=== PATIENT | male | born 1990 | race Caucasian/White ===

== ENCOUNTER 2020-01-20 10:45 | Emergency (ER) | payer MEDICAID, SELFPAY ==
[2020-01-20 10:53] VITALS: BP 109/82; PULSE 110; RESP 17; TEMP 37.2; O2SAT 98; BMI 20.9
--- NOTE | 2020-01-20 10:57 | ED_ITS ---
HPI - General Adult General Chief complaint: General Medical Stated complaint: covid swab Time Seen by Provider: 01/20/20 10:55 Source: patient Mode of arrival: ambulatory Limitations: no limitations History of Present Illness HPI narrative: + COVID exposure wants to be tested complaint: wants COVID swab, urine benavidez Onset (ago): day(s) (yesterday) Severity: mild Quality: burning Pain Consistency: intermittent Relieving factors: none Exacerbating factors: other (urination) Associated symptoms: other (feels his body is hot) Related Data Allergies Allergy/AdvReac Type Severity Reaction Status Date / Time acetaminophen [From TYLENOL] Allergy Unknown DIZZINESS, Verified 01/20/20 10:57 FELT REALLY BAD ampicillin [AMPICILLIN] Allergy Unknown HIVES, Verified 01/20/20 10:57 FEELS LIKE ORGANS SWOLLEN, swelling, swelling aspirin [ASPIRIN] Allergy Unknown DIZZINESS, Verified 01/20/20 10:57 FELT REALLY BAD, swelling, swelling fluphenazine [FLUPHENAZINE] Allergy Unknown WORSENED Verified 01/20/20 10:57 ANXIETY, anxiety haloperidol [Haldol] Allergy Unknown tachycardia Verified 01/20/20 10:57 mirtazapine Allergy Unknown sleepiness Verified 01/20/20 10:57 sertraline [SERTRALINE] Allergy Unknown SLEEPY, Verified 01/20/20 10:57 sleepiness Fluphenazine HCl Allergy Unknown Unknown Uncoded 01/20/20 10:57 Review of Systems Review of Systems: Constitutional : No Weight loss, No Fever, No Chills, No Fatigue, No Malaise ENT/Mouth : No sore throat, No Rhinorrhea Cardiovascular : No Chest Pain, No SOB Respiratory : No Cough, No Sputum, No Wheezing Gastrointestinal : No Nausea, No Vomiting, No Diarrhea, No Constipation, No abdominal Pain, No Hematochezia, No Melena Genitourinary : pos Dysuria, No Urinary Frequency, No Hematuria, Musculoskeletal : No joint pain, No Myalgias, No Joint Swelling Skin : No Skin Lesions, No rash Neuro : No Weakness, No Numbness, No Dizziness, No Headache Psych : No Anxiety/Panic, No Depression [facility] Past Medical History Attestation statement: The following information was validated with the patient. Medical History Asthma Social History Social History (Updated 01/20/20 @ 10:59 by Bernie Munoz DO) Smoking Status: Never smoker Use of substances other than those prescribed or required for medical reasons: No Advance Directives: No Advance Directives Information Provided: Yes Physical Exam Vital Signs: Vital Signs: Last Vital Signs Temp 99.0 F 01/20/20 10:53 Pulse 110 H 01/20/20 10:53 Resp 17 01/20/20 10:53 BP 109/82 01/20/20 10:53 Pulse Ox 98 01/20/20 10:53 Body Mass Index 20.9 Appearance: Alert. Oriented X3. No acute distress. Eyes: Pupils equal, round and reactive to light. ENT: Pharynx normal. Neck: Normal inspection. Neck supple. CVS: Normal heart rate and rhythm. Pulses normal. Respiratory: No respiratory distress. Breath sounds normal. Abdomen: Soft and nontender. Skin: Skin warm and dry. Normal skin color. Normal skin turgor. Extremities: No lower extremity edema. No calf ttp Neuro: Oriented X 3. No motor deficit. No sensory deficit. Medical Decision Making MDM Narrative Medical decision making narrative: asymptomatic COVID swab, clear lungs no hypoxia, also c/o burning of urination - no STI concerns, UA and GC ordered Discharge Plan Discharge Clinical Impression: Viral syndrome, Dysuria Patient Disposition: Home, Self-Care Instructions: COVID-19 (Coronavirus Disease 2019) (ED) Additional Instructions: return to ED for any worsening symptoms or concerns you were tested for COVID we will call you with results in 2 to 4 days, wear a mask, socially distance you were tested for gonorrhea and chlamydia too - if positive we will call you Referrals: [facility] [Primary Care Provider] - 2 days (if not better) Print Language: Sudanese
[2020-01-20 12:25] LABS: Glucose Urine UA NEG (NEG); Leukocyte Esterase Urine NEG (NEG); Nitrite Urine NEG (NEG); Specific Gravity - Urine >= 1.030 (1.005-1.025); Urine Blood TRACE (NEG); Urine Ketones >=80 MG/DL (NEG); Urine Protein NEG (NEG-TRACE)
[2020-01-20 12:26] LABS: Appearance Urine HAZY; Color Urine YELLOW
[2020-01-20 12:33] LABS: UACC CULT YES; WBC Urine 30-49 /HPF (0-4)
[2020-01-20 12:34] LABS: Squamous Epithelial Cell Urine 1+ /LPF
[2020-01-20 12:35] LABS: Mucus Urine 4+ /LPF
[2020-01-20 15:12] LABS: CT PCR NOT DETECTED (Not Detect.); NG PCR NOT DETECTED (Not Detect.)
== END 2020-01-20 12:37 | disposition home or self-care (01) ==
PROVIDERS: Emergency Provider Emergency Medicine
DX: B34.9 Viral infection, unspecified (principal); R30.0 Dysuria; Z20.828 Contact with and (suspected) exposure to other viral communicable diseases; Z20.2 Contact with and (suspected) exposure to infections with a predominantly sexual mode of transmission
CPT/HCPCS: 81001; 87086; 87088; 87186; 87491; 87591; 99283; U0003

== ENCOUNTER 2020-02-07 13:23 | Outpatient (REF) | payer MEDICAID, SELFPAY | END 2020-02-07 13:24 | disposition home or self-care (01) | LOC: HO.LAB 13:23 | PROVIDERS: Visit Provider Internal Medicine | DX: Z20.828 Contact with and (suspected) exposure to other viral communicable diseases (principal) | CPT/HCPCS: C9803; U0003 ==

== ENCOUNTER 2020-03-21 15:41 | Outpatient (REF) | payer MEDICAID, SELFPAY | END 2020-03-21 15:42 | disposition home or self-care (01) | LOC: HO.LAB 15:41 | PROVIDERS: Visit Provider Internal Medicine | DX: Z20.822 Contact with and (suspected) exposure to COVID-19 (principal) | CPT/HCPCS: 36415; C9803; U0003 ==

== ENCOUNTER 2020-05-04 12:22 | Emergency (ER) | payer MEDICAID, SELFPAY ==
[2020-05-04 12:49] VITALS: BP 127/90; PULSE 86; RESP 16; TEMP 537.1; TEMP 998.7; O2SAT 98; BMI 15.3
[2020-05-04 13:46] LABS: COVID-19 Test Negative (Negative); IDNOW Serial# 9DD0AD1C
--- NOTE | 2020-05-04 14:02 | ED.GENADULT ---
HPI - General Adult General Chief complaint: Upper Respiratory Symptoms Stated complaint: headache,sore throat,sinus pain Time Seen by Provider: 05/04/20 12:59 History of Present Illness HPI narrative: Patient complains of body aches fatigue, minor headache, minor sore throat, runny nose for several days, his mother has COVID, he has no fever no chills no dizziness no shortness of breath no cough Related Data Allergies Allergy/AdvReac Type Severity Reaction Status Date / Time acetaminophen [From TYLENOL] Allergy Unknown DIZZINESS, Verified 01/20/20 10:57 FELT REALLY BAD ampicillin [AMPICILLIN] Allergy Unknown HIVES, Verified 01/20/20 10:57 FEELS LIKE ORGANS SWOLLEN, swelling, swelling aspirin [ASPIRIN] Allergy Unknown DIZZINESS, Verified 01/20/20 10:57 FELT REALLY BAD, swelling, swelling fluphenazine [FLUPHENAZINE] Allergy Unknown WORSENED Verified 01/20/20 10:57 ANXIETY, anxiety haloperidol [Haldol] Allergy Unknown tachycardia Verified 01/20/20 10:57 mirtazapine Allergy Unknown sleepiness Verified 01/20/20 10:57 sertraline [SERTRALINE] Allergy Unknown SLEEPY, Verified 01/20/20 10:57 sleepiness Fluphenazine HCl Allergy Unknown Unknown Uncoded 01/20/20 10:57 Review of Systems Review of Systems: Positive for body aches fatigue sore through runny nose and headache Negatives are no fever no chills no dizziness no weakness no neck pain no chest pain no shortness of breath no sputum no cough no abdominal pain no nausea vomiting or diarrhea, no rash, no dysuria no change to bowel or bladder, no numbness or weakness PMFSH Past Medical History Source: nursing notes reviewed Medical History Asthma Social History Social History (Updated 01/20/20 @ 10:59 by Bernie Munoz DO) Smoking Status: Never smoker Advance Directives: No Advance Directives Information Provided: No Physical Exam Vital Signs: Vital Signs: Last Vital Signs Temp 998.7 F H 05/04/20 12:49 Pulse 86 05/04/20 12:49 Resp 16 05/04/20 12:49 BP 127/90 H 05/04/20 12:49 Pulse Ox 98 05/04/20 12:49 Body Mass Index 15.3 General appearance no acute distress comfortable relax cheerful and cooperative The head is normocephalic atraumatic Pharynx is clear Neck is supple without lymphadenopathy Chest is clear to auscultation bilaterally with full symmetrical breath sounds Heart rate and rhythm regular no murmur Abdomen soft nontender Extremities for range of motion x4 Skin no rash Neuro no focal deficit Course Course Course Narrative: COVID testing was negative, patient remains comfortable and relaxed throughout visit Medical Decision Making Lab Data Labs: Lab Results 05/04/20 Range/Units 13:17 COVID-19 (YOSEF) Negative (Negative) COVID-19 Clin Com See Note Discharge Plan Discharge Clinical Impression: Viral infection Patient Disposition: Home, Self-Care Additional Instructions: Your COVID test today was negative But your symptoms are concerning for COVID and the test is sometimes on reliable so wear a mask and keep a distance from people Return any time any worse condition or any concerns You can use Tylenol or Motrin for any aches or pains Interventions: ED Discharge Assessment Last Done: 05/04/20 14:10 Discharge Date/Time: 05/04/20 14:11
== END 2020-05-04 14:11 | disposition home or self-care (01) ==
PROVIDERS: Physician Assistant Medical; Emergency Provider Emergency Medicine; PCP Emergency Medicine
DX: B34.9 Viral infection, unspecified (principal); M79.10 Myalgia, unspecified site; R51.9 Headache, unspecified; Z20.822 Contact with and (suspected) exposure to COVID-19; Z79.899 Other long term (current) drug therapy
CPT/HCPCS: 36415; 87635; 99283

== ENCOUNTER 2020-05-15 14:20 | Outpatient (REF) | payer MEDICAID, SELFPAY | END 2020-05-15 14:21 | disposition home or self-care (01) | LOC: HO.LAB 14:20 | PROVIDERS: Visit Provider Internal Medicine | DX: Z20.822 Contact with and (suspected) exposure to COVID-19 (principal) | CPT/HCPCS: 36415; C9803; U0003; U0005 ==

== ENCOUNTER 2021-05-13 10:34 | Emergency (ER) | payer MEDICAID, SELFPAY ==
[2021-05-13 11:13] VITALS: BP 132/79; PULSE 102; RESP 16; TEMP 36.1; O2SAT 98; BMI 15.5
[2021-05-13 11:35] LABS: IDNOW Serial# 08D9AD1C; Strep A Nucleic Acid Positive (Negative)
[2021-05-13 11:45] LABS: Influenza A Negative (Negative); Influenza B2 Negative (Negative)
[2021-05-13] MEDS: predniSONE 20 MG TABLET 60 MG PO (11:46)
[2021-05-13] MEDS: Lidocaine HCl Viscous 2 % 15 ML SOLUTION MUCOUS MEM (11:46)
--- NOTE | 2021-05-13 11:51 | ED.URI ---
HPI - URI/Sore Throat General Chief Complaint: Upper Respiratory Symptoms Stated Complaint: throat pain Time Seen by Provider: 05/13/21 10:53 Source: patient Mode of arrival: ambulatory History of Present Illness HPI Narrative: 31-year-old male with a past medical history of asthma presenting to the ED complaining of sore throat, painful swallowing, and white patch back of throat x1 week. Denies difficulty swelling, inability to swallow, difficulty breathing, SOB, CP, fever, ear pain, cough MD elicited complaint: sore throat Onset (ago): week(s) Related Data Previous Rx's Medication Instructions Recorded cefuroxime axetil 250 mg tablet 250 mg PO BID 10 Days #20 tab 05/13/21 Allergies Allergy/AdvReac Type Severity Reaction Status Date / Time acetaminophen [From TYLENOL] Allergy Unknown DIZZINESS, Verified 01/20/20 10:57 FELT REALLY BAD ampicillin [AMPICILLIN] Allergy Unknown HIVES, Verified 01/20/20 10:57 FEELS LIKE ORGANS SWOLLEN, swelling, swelling aspirin [ASPIRIN] Allergy Unknown DIZZINESS, Verified 01/20/20 10:57 FELT REALLY BAD, swelling, swelling fluphenazine [FLUPHENAZINE] Allergy Unknown WORSENED Verified 01/20/20 10:57 ANXIETY, anxiety haloperidol [Haldol] Allergy Unknown tachycardia Verified 01/20/20 10:57 mirtazapine Allergy Unknown sleepiness Verified 01/20/20 10:57 sertraline [SERTRALINE] Allergy Unknown SLEEPY, Verified 01/20/20 10:57 sleepiness Fluphenazine HCl Allergy Unknown Unknown Uncoded 01/20/20 10:57 Review of Systems Review of Systems: Constitutional: No Fever, No Chills ENT/Mouth: No Ear Pain, No Nasal Congestion, No Sinus Pain, No Hoarseness, + sore throat, No Rhinorrhea, No Swallowing Difficulty Cardiovascular: No Chest Pain, No SOB Respiratory: No Cough, No Sputum, No Wheezing Gastrointestinal: No Nausea, No Vomiting, No Diarrhea, No Constipation, No Abdominal pain Genitourinary: No Dysuria, No Hematuria, No Flank Pain Musculoskeletal: No joint pain, No Myalgias, No Joint Swelling Skin: No Skin Lesions, No rash Neuro: No Weakness, No Numbness Yes all other systems are reviewed and are negative PMFSH Past Medical History Attestation statement: The following information was validated with the patient. Medical History Asthma Social History Social History Advance Directives: No Advance Directives Information Provided: No Physical Exam Vital Signs: Vital Signs: Last Vital Signs Temp 96.9 F 05/13/21 11:13 Pulse 102 H 05/13/21 11:13 Resp 16 05/13/21 11:13 BP 132/79 05/13/21 11:13 Pulse Ox 98 05/13/21 11:13 BMI result Body Mass Index 15.5 Const: General: cooperative, healthy appearing, no acute distress, alert and awake Orientation/consciousness: patient oriented x3 Limitations: no limitations HENMT: Other: +posterior oropharyngeal erythema and large white exudate/tonsil stone to left tonsil Head: Yes normal to inspection and Yes atraumatic Ears: hearing grossly normal bilaterally, TM's normal bilaterally and mastoids normal General nose exam: Normal external nose present Face and sinus: Yes normal facial exam Mouth: Normal oral and palatal mucosa present Throat: Yes uvula midline and No uvula laterally displaced Eyes: General: appearance normal, both eyes and all related structures EOM: EOMs intact bilaterally Neck: Other: + submandibular lymphadenopathy Neck: Yes normal visual inspection Resp: Effort & Inspection: normal respiratory effort, no respiratory distress and no stridor Auscultation: clear to auscultation bilaterally Cardio: Rate: regular rate Heart sounds: S1 normal heart sound present and S2 normal heart sound present GI: Inspection: Yes normal to inspection Palpation (GI): nontender, no guarding, not rigid and No hepatosplenomegaly present Skin: Rashes: no rashes Wounds: no wounds Neuro: General: patient oriented x3 Gait exam (Neuro): Normal gait present Extrem: General: Yes normal to inspection Course Course Course Narrative: -influenza negative. Rapid strep positive > patient given 1st dose of Ceftin in the ED due to allergies. Also given 60 mg of prednisone 1x dose for swelling -COVID-19 negative -Monospot positive > discussed with patient results including needed avoidance of contact sports and close follow-up with PCP. Discussed risk of disease spread. He verbalized understanding > abdomen is soft and nontender. No appreciable hepatosplenomegaly MDM - URI/Sore Throat MDM Narrative Medical decision making narrative: 31-year-old male with a past medical history of asthma presenting to the ED complaining of sore throat, painful swallowing, and white patch back of throat x1 week. On exam mildly tachycardic, NAD, talking in complete sentences, physical exam as above concerning for strep pharyngitis vs tonsil stone vs mono. Attempted to manually dislodge tonsil stone in the ED however unsuccessful. Case discussed with Dr. Singh who also evaluated patient & attemped dislodgement without success. Patient will need follow-up with ENT Differential Diagnosis Differential diagnosis: Likely upper respiratory infection, viral infection and pharyngitis Medical Records Attestation: I reviewed the patient's medical records. Lab Data Attestation: I reviewed the patient's lab results. Labs: Lab Results 05/13/21 05/13/21 05/13/21 Range/Units 11:22 11:22 11:22 COVID-19 (YOSEF) Negative (Negative) COVID-19 Clin Com See Note Monoscreen (Negative) Influenza Type A (IMAN) Negative (Negative) Influenza Type B (IMAN) Negative (Negative) Influenza A & B Note See Note S. pyogenes GrpA IMAN Positive A (Negative) 05/13/21 Range/Units 11:36 COVID-19 (YOSEF) (Negative) COVID-19 Clin Com Monoscreen Positive A (Negative) Influenza Type A (IMAN) (Negative) Influenza Type B (IMAN) (Negative) Influenza A & B Note S. pyogenes GrpA IMAN (Negative) Discharge Plan Discharge Clinical Impression: Strep pharyngitis, Mononucleosis Patient Disposition: Home, Self-Care Instructions: Strep Throat (DC) Additional Instructions: You have strep throat. Seven is antibiotic please take as prescribed. Your also given a dose of an oral steroid today which will help with swelling. Take Tylenol and Motrin for pain and swelling. Monitor temperatures. Gargle with warm salt water. Avoid contact sports, if he developed abdominal pain return to the ED If symptoms persist or worsen, you are unable to eat or drink, unable to swallow, are drooling or have worsening oral swelling return to the ED immediately You need to follow-up with the ENT specialist Prescriptions: New cefuroxime axetil 250 mg tablet 250 mg PO BID 10 Days Qty: 20 0RF Referrals: Braden Briggs [Physician] - 2 days Interventions: ED Discharge Assessment Last Done: 05/13/21 13:11 Discharge Date/Time: 05/13/21 13:13
[2021-05-13 11:57] LABS: COVID-19 Test Negative (Negative)
[2021-05-13 13:03] LABS: Monotest Positive (Negative)
== END 2021-05-13 13:13 | disposition home or self-care (01) ==
PROVIDERS: Physician Assistant; Emergency Provider Emergency Medicine
DX: J02.0 Streptococcal pharyngitis (principal); B27.90 Infectious mononucleosis, unspecified without complication; R07.0 Pain in throat; R13.10 Dysphagia, unspecified; Z20.822 Contact with and (suspected) exposure to COVID-19; Z79.899 Other long term (current) drug therapy
CPT/HCPCS: 36415; 86308; 87502; 87635; 87651; 99283

== ENCOUNTER 2021-07-25 17:11 | Emergency (ER) | payer MEDICAID, SELFPAY ==
--- NOTE | ~2021-07-25 | XR_ITS ---
EXAMINATION: BILATERAL KNEES, LEFT FOREARM CLINICAL INFORMATION: Fall COMPARISON: Knee radiographs 05/03/2016 TECHNIQUE: 4 views each knee, 2 views left forearm FINDINGS: No bone, joint, or soft tissue abnormality is seen. No fractures are detected. XR/XR knee LT 2V IMPRESSION: Negative studies. No evidence of a traumatic osseous injury.
--- NOTE | ~2021-07-25 | XR_ITS ---
EXAMINATION: BILATERAL KNEES, LEFT FOREARM CLINICAL INFORMATION: Fall COMPARISON: Knee radiographs 05/03/2016 TECHNIQUE: 4 views each knee, 2 views left forearm FINDINGS: No bone, joint, or soft tissue abnormality is seen. No fractures are detected. XR/XR knee RT 2V IMPRESSION: Negative studies. No evidence of a traumatic osseous injury.
--- NOTE | ~2021-07-25 | XR_ITS ---
EXAMINATION: BILATERAL KNEES, LEFT FOREARM CLINICAL INFORMATION: Fall COMPARISON: Knee radiographs 05/03/2016 TECHNIQUE: 4 views each knee, 2 views left forearm FINDINGS: No bone, joint, or soft tissue abnormality is seen. No fractures are detected. XR/XR forearm LT 2V IMPRESSION: Negative studies. No evidence of a traumatic osseous injury.
[2021-07-25 17:33] VITALS: BP 119/76; PULSE 79; RESP 18; TEMP 36.4; O2SAT 98; BMI 15.5
[2021-07-25 19:24] VITALS: BP 118/80; PULSE 80; RESP 16; O2SAT 97
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
[2021-07-25] MEDS: Ibuprofen 800 MG TABLET PO (20:40)
[2021-07-25] MEDS: Diphth,Pertus(ACell),Tet Adult 0.5 ML SYRINGE IM (20:41)
== END 2021-07-25 21:02 | disposition home or self-care (01) ==
PROVIDERS: Emergency Provider Emergency Medicine
DX: S80.212A Abrasion, left knee, initial encounter (principal); S80.211A Abrasion, right knee, initial encounter; M79.632 Pain in left forearm; W05.2XXA Fall from non-moving motorized mobility scooter, initial encounter; Y93.9 Activity, unspecified; Y92.410 Unspecified street and highway as the place of occurrence of the external cause; Y99.9 Unspecified external cause status; Z79.899 Other long term (current) drug therapy
CPT/HCPCS: 73090; 73560; 90471; 90715; 99283; 99284

== ENCOUNTER 2021-09-23 12:56 | Emergency (ER) | payer MEDICAID, SELFPAY ==
[2021-09-23 13:24] VITALS: BP 120/72; PULSE 93; RESP 18; TEMP 37.1; O2SAT 97; BMI 15.3
--- NOTE | 2021-09-23 14:17 | ECG_ITS ---
Test Reason : CHEST PAIN Blood Pressure : / mmHG Vent. Rate : 070 BPM Atrial Rate : 070 BPM P-R Int : 138 ms QRS Dur : 090 ms QT Int : 394 ms P-R-T Axes : 076 079 064 degrees QTc Int : 425 ms Normal sinus rhythm Normal ECG No significant changes when compared with the previous EKG of 11 jan 2016 Referred By: Deborah Burger Electronically Signed By:MAYLIN RAMESH
[2021-09-23] MEDS: diphenhydrAMINE HCL 25 MG TABLET 50 MG PO (14:35)
[2021-09-23] MEDS: Famotidine 20 MG TABLET PO (14:35)
[2021-09-23 14:50] LABS: MANUAL DIFF FLAG NO
[2021-09-23 14:51] LABS: Basophils Percent Auto 0.1 % (0-2); Eosinophils Percent Auto 0.5 % (0-4); Hematocrit 44.1 % (42.0-52.0); Hemoglobin 14.5 g/dl (14.0-18.0); Imm Gran Abs Auto 0.02 X10*3/uL (0.00-0.03); Imm Gran Pct Auto 0.3 % (0.0-0.4); Lymphocytes Absolute Auto 1.3 X10*3/uL (1.2-4.9); Lymphocytes Percent Auto 17.3 % (20-40); Mean Corpuscular HGB Conc 32.9 g/dl (31.0-36.0); Mean Corpuscular Hemoglobin 28.8 pg (27.0-33.0); Mean Corpuscular Volume 87.7 fL (80.0-98.0); Mean Platelet Volume 9.9 fL (9.4-12.4); Monocytes Absolute Auto 0.3 X10*3/uL (0.1-1.2); Monocytes Percent Auto 4.2 % (2-11); Neutrophils Percent Auto 77.6 % (45-73); Platelet Count 222 X10*3/uL (160-400); Red Blood Count 5.03 X10*6/uL (4.60-5.80); White Blood Count 7.7 X10*3/uL (4.8-10.8)
[2021-09-23 15:19] LABS: Alanine Aminotransferase 10 U/L (0-40); Albumin Level 4.7 g/dL (3.5-5.0); Alkaline Phosphatase 54 U/L (39-117); Anion Gap 15 (12-20); Aspartate Amino Transferase 19 U/L (5-37); Bilirubin Direct 0.6 mg/dL (0.0-0.5); Bilirubin Total 1.8 mg/dL (0.0-1.0); Blood Urea Nitrogen 17 mg/dL (9-16); Calcium 9.7 mg/dL (8.4-10.2); Carbon Dioxide 25 mmol/L (22-29); Chloride 103 mmol/L (96-108); Creatinine Clr Calc Pharmacy 86.6; Estimated Glomerular Filt Rate > 60; Glucose Random 109 mg/dL (60-115); Potassium 4.5 mmol/L (3.3-5.1); Sodium 138 mmol/L (135-145); Total Protein 8.4 g/dL (6.5-8.0)
[2021-09-23 15:21] LABS: Troponin-I High Sensitivity < 3.5 ng/L (<3.5-35.0)
--- NOTE | 2021-09-23 15:40 | ED.GENADULT ---
HPI - General Adult General Chief complaint: Skin/Abscess/Foreign Body Stated complaint: Itching & Swelling of Body Fatigue Weakness Time Seen by Provider: 09/23/21 14:09 Source: patient Mode of arrival: ambulatory History of Present Illness HPI narrative: 31-year-old male with past medical history of asthma presenting to the ED complaining of diffuse pruritus x4 days. Also reports intermittent substernal chest pain and myalgias. denies recent travel, rash, tick/insect bites, new exposures, shortness of breath, pedal edema, history of clots Onset (ago): day(s) Related Data Previous Rx's Medication Instructions Recorded cefuroxime axetil 250 mg tablet 250 mg PO BID 10 days #20 tabs 05/13/21 Allergies Allergy/AdvReac Type Severity Reaction Status Date / Time acetaminophen [From TYLENOL] Allergy Unknown DIZZINESS, Verified 09/23/21 13:24 FELT REALLY BAD ampicillin [AMPICILLIN] Allergy Unknown HIVES, Verified 09/23/21 13:24 FEELS LIKE ORGANS SWOLLEN, swelling, swelling aspirin [ASPIRIN] Allergy Unknown DIZZINESS, Verified 09/23/21 13:24 FELT REALLY BAD, swelling, swelling fluphenazine [FLUPHENAZINE] Allergy Unknown WORSENED Verified 09/23/21 13:24 ANXIETY, anxiety haloperidol [Haldol] Allergy Unknown tachycardia Verified 09/23/21 13:24 mirtazapine Allergy Unknown sleepiness Verified 09/23/21 13:24 sertraline [SERTRALINE] Allergy Unknown SLEEPY, Verified 09/23/21 13:24 sleepiness Fluphenazine HCl Allergy Unknown Unknown Uncoded 01/20/20 10:57 Review of Systems Review of Systems: Constitutional: No Fever, No Chills, No Fatigue, No Malaise ENT/Mouth: No Ear Pain, No Nasal Congestion, No Sinus Pain, No Hoarseness, No sore throat, No Rhinorrhea, No Swallowing Difficulty Eyes: No Eye Pain, No Swelling, No Redness, No Vision Changes Cardiovascular: + Chest Pain, No SOB, No Edema, No Palpitations Respiratory: No Cough, No Sputum, No Wheezing, No Dyspnea Gastrointestinal: No Nausea, No Vomiting, No Diarrhea, No Constipation, No Abdominal pain Genitourinary: No Dysuria, No Urinary Frequency, No Hematuria, No Flank Pain, No Urinary Flow Changes, No Hesitancy Musculoskeletal: No joint pain, + Myalgias, No Joint Swelling Skin: No Skin Lesions, No rash, +pruritus Neuro: No Weakness, No Numbness, No Loss of Consciousness, No Dizziness, No Headache Yes all other systems are reviewed and are negative Constitutional: Constitutional: Reports as per [facility] Past Medical History Attestation statement: The following information was validated with the patient. Medical History Asthma Social History Social History Advance Directives: No Advance Directives Information Provided: No Physical Exam ED Vital Signs: Vital Signs - 24 hr 09/23/21 13:24 Temperature 98.7 F Pulse Rate 93 Respiratory Rate 18 Blood Pressure 120/72 Pulse Oximetry 97 Oxygen Delivery Method Room Air BMI result Body Mass Index 15.3 Const General: cooperative, healthy appearing and no acute distress Orientation/consciousness: patient oriented x3 Limitations: no limitations HENMT Other: no mucous membrane involvement Head: Yes normal to inspection and Yes atraumatic Ears: hearing grossly normal bilaterally General nose exam: Normal external nose present Face and sinus: Yes normal facial exam Mouth: Normal oral and palatal mucosa present and moist mucous membranes Throat: Yes posterior oropharynx normal, Yes tonsils normal and Yes uvula midline Eyes General: appearance normal, both eyes and all related structures EOM: EOMs intact bilaterally Neck Neck: Yes normal visual inspection and Yes no meningeal signs Chest Chest palpation & inspection: normal inspection of the chest, no crepitus and tenderness ( reproducing subjective complaint) sternum Resp Effort & Inspection: normal respiratory effort and no respiratory distress Auscultation: clear to auscultation bilaterally, no crackles, no rales, no rhonchi and no wheezes Cardio Rate: regular rate Heart sounds: S1 normal heart sound present and S2 normal heart sound present GI Inspection: Yes normal to inspection Palpation (GI): Soft to palpation, nontender, no guarding and not rigid Skin Lesions: no lesions Rashes: no rashes Wounds: no wounds Nails: normal Neuro General: patient oriented x3, tone normal and no meningeal signs Gait exam (Neuro): Normal gait present Extrem General: Yes normal to inspection Course Course Course Narrative: -[id number]-- no leukocytosis. Total bilirubin mildly elevated. Troponin negative. Labs otherwise unremarkable. >Results discussed with patient including worrisome signs and symptoms and strict return precautions, and when to return to the emergency department. They verbalized understanding and feel safe for discharge at this time. Medical Decision Making MDM Narrative Medical decision making narrative: 31-year-old male with past medical history of asthma presenting to the ED complaining of diffuse pruritus x4 days. on exam vital signs stable, NAD, nontoxic appearing, physical exam as above with reproducible substernal chest pain. No appreciable rash or lesions. Concern for ? allergic reaction vs contact dermatitis vs liver abnormalities prior red low suspicion for Lyme disease. concern for costochondritis. Symptoms atypical for ACS or PE. Plan: EKG, labs, p.o. Benadryl Lab Data Result diagrams: 09/23/21 14:43 09/23/21 14:43 Labs: Lab Results 09/23/21 09/23/21 09/23/21 Range/Units 14:43 14:43 14:43 WBC 7.7 (4.8-10.8) X10*3/uL RBC 5.03 (4.60-5.80) X10*6/uL Hgb 14.5 (14.0-18.0) g/dl Hct 44.1 (42.0-52.0) % MCV 87.7 (80.0-98.0) fL MCH 28.8 (27.0-33.0) pg MCHC 32.9 (31.0-36.0) g/dl RDW 13.0 (11.0-16.0) % Plt Count 222 (160-400) X10*3/uL MPV 9.9 (9.4-12.4) fL Immature Gran % (Auto) 0.3 (0.0-0.4) % Neut % (Auto) 77.6 H (45-73) % Lymph % (Auto) 17.3 L (20-40) % Miner % (Auto) 4.2 (2-11) % Eos % (Auto) 0.5 (0-4) % Baso % (Auto) 0.1 (0-2) % Lymph # (Auto) 1.3 (1.2-4.9) X10*3/uL Miner # (Auto) 0.3 (0.1-1.2) X10*3/uL Eos # (Auto) 0.0 (0.0-0.4) X10*3/uL Baso # (Auto) 0.0 (0.0-0.2) X10*3/uL Abs Immat Gran (auto) 0.02 (0.00-0.03) X10*3/uL Absolute Neuts (auto) 6.0 (2.0-8.3) x10*3/uL Absolute Nucleated RBC 0.000 (0.0-0.012) X10*3/uL Nucleated RBC % (auto) 0.0 (0.0-0.2) /100WBC Sodium 138 (135-145) mmol/L Potassium 4.5 (3.3-5.1) mmol/L Chloride 103 (96-108) mmol/L Carbon Dioxide 25 (22-29) mmol/L Anion Gap 15 (12-20) BUN 17 H (9-16) mg/dL Creatinine 0.88 (0.5-1.4) mg/dL Estim Creat Clear Calc 86.6 Estimated GFR > 60 Random Glucose 109 (60-115) mg/dL Calcium 9.7 (8.4-10.2) mg/dL Total Bilirubin 1.8 H (0.0-1.0) mg/dL Direct Bilirubin 0.6 H (0.0-0.5) mg/dL AST 19 (5-37) U/L ALT 10 (0-40) U/L Alkaline Phosphatase 54 (39-117) U/L Troponin I High Sens < 3.5 (<3.5-35.0) ng/L Total Protein 8.4 H (6.5-8.0) g/dL Albumin 4.7 (3.5-5.0) g/dL ECG Data Attestation: I personally reviewed and interpreted this ECG as follows: Interpretation: EKG normal sinus rhythm with early repolarization at a rate of 70. No STEMI. Nonischemic. QTC 425 Discharge Plan Discharge Clinical Impression: Pruritus, Acute costochondritis Patient Disposition: Home, Self-Care Instructions: Costochondritis (ED), Itchy Skin (ED) Additional Instructions: Your blood work was reassuring. Please have close follow-up with her primary care doctor. Take Benadryl and Zyrtec as needed at home for symptoms. You can also take Tylenol Motrin for your chest pain. If he develops rash, fever, nausea / vomiting please return to the emergency department. You may also apply topical emollients/lotion Prescriptions: No Action cefuroxime axetil 250 mg tablet 250 mg PO BID 10 Days Qty: 20 0RF Referrals: [facility] [Primary Care Provider] - 2 days
== END 2021-09-23 16:36 | disposition home or self-care (01) ==
PROVIDERS: Physician Assistant; Emergency Provider Emergency Medicine
DX: L29.9 Pruritus, unspecified (principal); M94.0 Chondrocostal junction syndrome [Tietze]; R06.02 Shortness of breath; Z79.899 Other long term (current) drug therapy
CPT/HCPCS: 36415; 80048; 80076; 84484; 85025; 93005; 99284; Q0163

== ENCOUNTER 2022-03-26 13:54 | Outpatient (REF) | payer MEDICAID, SELFPAY ==
--- NOTE | ~2022-03-26 | XR_ITS ---
EXAMINATION: XR SCOLIOSIS CLINICAL INFORMATION: 32-year-old male with history of scoliosis and chronic bilateral thoracic back pain. COMPARISON: Thoracic spine plain radiographs dated 08/31/2014. TECHNIQUE: A single view of the thoracolumbar spine is obtained. FINDINGS: There are no intrinsic vertebral anomalies. There are 12 rib bearing thoracic type vertebrae, and 5 non rib bearing lumbar type vertebrae. There is 14 degrees leftward convex curvature of the upper to mid thoracic spine. The remainder of the spine is straight on AP imaging. Vertebral body heights appear preserved. The iliac crests are essentially symmetric in height. The remainder of the visualized bony skeleton is normal. The visualized lungs and pleural spaces are clear. The heart is not enlarged. The visualized bowel gas pattern is normal. XR/XR scoliosis survey IMPRESSION: Minimal leftward convex curvature of the thoracic spine as above.
== END 2022-03-26 13:55 | disposition home or self-care (01) ==
LOC: HO.XRAY 13:54
PROVIDERS: PCP General Practice; Visit Provider General Practice
DX: M54.6 Pain in thoracic spine (principal); Z87.39 Personal history of other diseases of the musculoskeletal system and connective tissue
CPT/HCPCS: 72082

== ENCOUNTER 2022-06-18 16:00 | Outpatient (RCR) | payer MEDICAID, SELFPAY | END 2022-08-01 08:08 | disposition home or self-care (01) | LOC: HO.PT 16:00 | PROVIDERS: PCP General Practice; Visit Provider General Practice | DX: M41.124 Adolescent idiopathic scoliosis, thoracic region (principal) | CPT/HCPCS: 97110; 97112; 97161; 97530 ==

== ENCOUNTER 2023-06-30 15:51 | Outpatient (REF) | payer MEDICAID, SELFPAY ==
[2023-06-30 17:52] LABS: MANUAL DIFF FLAG NO
[2023-06-30 18:20] LABS: Alanine Aminotransferase 8 U/L (0-40); Albumin Level 4.5 g/dL (3.5-5.0); Alkaline Phosphatase 48 U/L (39-117); Anion Gap 12 (12-20); Aspartate Amino Transferase 16 U/L (5-37); Blood Urea Nitrogen 6 mg/dL (9-16); Calcium 9.4 mg/dL (8.4-10.2); Carbon Dioxide 27 mmol/L (22-29); Chloride 106 mmol/L (96-108); Estimated Glomerular Filt Rate > 60; Glucose Random 82 mg/dL (60-115); Potassium 3.7 mmol/L (3.3-5.1); Sodium 141 mmol/L (135-145); Total Protein 7.7 g/dL (6.5-8.0)
[2023-06-30 18:42] LABS: TSH reflex Free T4 0.59 uIU/mL (0.32-4.0)
[2023-06-30 18:49] LABS: Folate 9.3 ng/mL (> or = 4.0); Vitamin B12 707 pg/mL (200-900)
[2023-06-30 19:03] LABS: Basophils Percent Auto 0.9 % (0-2); Eosinophils Absolute Auto 0.2 X10*3/uL (0.0-0.4); Eosinophils Percent Auto 4.9 % (0-4); Hemoglobin 14.2 g/dl (14.0-18.0); Imm Gran Abs Auto 0.01 X10*3/uL (0.00-0.03); Imm Gran Pct Auto 0.2 % (0.0-0.4); Lymphocytes Absolute Auto 1.8 X10*3/uL (1.2-4.9); Lymphocytes Percent Auto 42.1 % (20-40); Mean Corpuscular Hemoglobin 28.7 pg (27.0-33.0); Mean Platelet Volume 10.9 fL (9.4-12.4); Monocytes Absolute Auto 0.5 X10*3/uL (0.1-1.2); Monocytes Percent Auto 10.7 % (2-11); Neutrophils Absolute Auto 1.8 x10*3/uL (2.0-8.3); Neutrophils Percent Auto 41.2 % (45-73); Platelet Count 278 X10*3/uL (160-400); Red Blood Count 4.94 X10*6/uL (4.60-5.80); White Blood Count 4.3 X10*3/uL (4.8-10.8)
[2023-07-02 12:18] LABS: RPR Rapid Plasma Reagin NON-REACTIVE (NON-REACTIVE)
== END 2023-06-30 15:52 | disposition home or self-care (01) ==
LOC: HO.HHCL 15:51
PROVIDERS: Visit Provider General Practice
DX: L65.9 Nonscarring hair loss, unspecified (principal)
CPT/HCPCS: 36415; 80053; 82607; 82746; 84443; 85025; 86592

== ENCOUNTER 2023-12-31 15:34 | Outpatient (REF) | payer MEDICAID, SELFPAY ==
--- NOTE | ~2023-12-31 | XR_ITS ---
EXAMINATION: XR WRIST, LEFT CLINICAL INFORMATION: Limited range of motion COMPARISON: None available. TECHNIQUE: PA, lateral, and oblique views of the left wrist. FINDINGS: No fracture, dislocation or destructive lesion or erosive change. Navicular appears intact. XR/XR wrist LT min 3V IMPRESSION: Unremarkable study. Electronically signed by: Markel Jolly MD 12/31/2023 04:55 PM EDT RP
== END 2023-12-31 15:35 | disposition home or self-care (01) ==
LOC: HO.HHCX 15:34
PROVIDERS: Visit Provider General Practice
DX: M25.532 Pain in left wrist (principal)
CPT/HCPCS: 73110

== ENCOUNTER 2024-03-17 19:23 | Emergency (ER) | payer MEDICAID, SELFPAY ==
[2024-03-17 19:34] VITALS: BP 143/89; PULSE 116; RESP 18; TEMP 37; O2SAT 99; BMI 17.2
[2024-03-17 23:35] VITALS: BP 114/80; PULSE 104; RESP 18; TEMP 37; O2SAT 98
[2024-03-17 23:45] LABS: Hematocrit 45.7 % (42.0-52.0); Hemoglobin 15.4 g/dl (14.0-18.0); Mean Corpuscular HGB Conc 33.7 g/dl (31.0-36.0); Mean Corpuscular Hemoglobin 29.1 pg (27.0-33.0); Mean Corpuscular Volume 86.4 fL (80.0-98.0); Mean Platelet Volume 9.3 fL (9.4-12.4); Platelet Count 243 X10*3/uL (160-400); Red Blood Count 5.29 X10*6/uL (4.60-5.80); Red Cell Distribution Width 12.6 % (11.0-16.0); White Blood Count 6.5 X10*3/uL (4.8-10.8)
--- NOTE | 2024-03-17 23:49 | MHC.EDTECH ---
Patient brought into triage area,labs drawn and sent to lab
[2024-03-18] LABS: Alanine Aminotransferase 28 U/L (0-40); Albumin Level 4.7 g/dL (3.5-5.0); Alkaline Phosphatase 58 U/L (39-117); Anion Gap 10 (12-20); Aspartate Amino Transferase 23 U/L (5-37); Bilirubin Total 1.5 mg/dL (0.0-1.0); Blood Urea Nitrogen 19 mg/dL (9-16); Carbon Dioxide 26 mmol/L (22-29); Chloride 108 mmol/L (96-108); Creatinine Clr Calc Pharmacy 100.2; Estimated Glomerular Filt Rate > 60; Glucose Random 101 mg/dL (60-115); Potassium 3.8 mmol/L (3.3-5.1); Sodium 140 mmol/L (135-145); Total Protein 8.2 g/dL (6.5-8.0)
[2024-03-18] MEDS: Dicyclomine HCl 10 MG CAPSULE 20 MG PO (02:16)
[2024-03-18] MEDS: ondansetron HCL 4 MG/2 ML VIAL IVPUSH (02:16)
[2024-03-18] MEDS: 0.9 % Sodium Chloride 1,000 ML 999 ML IV (02:17)
--- NOTE | 2024-03-18 03:05 | ED.ABDPAIN ---
HPI - Abdominal Pain General Chief Complaint: Abdominal Pain Stated Complaint: weak, diarrhea Time Seen by Provider: 03/18/24 01:13 Source: patient Limitations: no limitations History of Present Illness ED Provider: Michelle May PA-C HPI narrative: 34-year-old male presents with nausea vomiting diarrhea x1 day. Patient states he has had 7 loose bowel movements today with the associated nausea and indigestion. Generalized abdominal cramping. Denies fever, or concurrent cough cold symptoms. He does not have any sick contacts with similar symptoms to his knowledge. Denies recent travel, use the antibiotics or hospitalization. Related Data Previous Rx's ?Medication ?Instructions ?Recorded cefuroxime axetil 250 mg tablet 250 mg PO BID 10 days #20 tabs 05/13/21 cetirizine 10 mg tablet (Zyrtec) 10 mg PO DAILY #14 tabs 09/23/21 diphenhydramine HCl 25 mg capsule 25 mg PO TID PRN itching #14 caps 09/23/21 (Benadryl) dicyclomine 20 mg tablet 20 mg PO BID PRN abdominal pain #7 03/18/24 tabs ondansetron HCl 4 mg tablet 4 mg PO Q8H PRN nausea and 03/18/24 vomiting #10 tabs sucralfate 100 mg/mL oral 10 ml PO QID PRN reflux #300 mL 03/18/24 suspension (Carafate) Allergies Allergy/AdvReac Type Severity Reaction Status Date / Time acetaminophen [From TYLENOL] Allergy Unknown DIZZINESS, Verified 03/17/24 19:36 FELT REALLY BAD ampicillin [AMPICILLIN] Allergy Unknown HIVES, Verified 03/17/24 19:36 FEELS LIKE ORGANS SWOLLEN, swelling, swelling aspirin [ASPIRIN] Allergy Unknown DIZZINESS, Verified 03/17/24 19:36 FELT REALLY BAD, swelling, swelling fluphenazine [FLUPHENAZINE] Allergy Unknown WORSENED Verified 03/17/24 19:36 ANXIETY, anxiety haloperidol [Haldol] Allergy Unknown tachycardia Verified 03/17/24 19:36 mirtazapine Allergy Unknown sleepiness Verified 03/17/24 19:36 sertraline [SERTRALINE] Allergy Unknown SLEEPY, Verified 03/17/24 19:36 sleepiness Fluphenazine HCl Allergy Unknown Unknown Uncoded 03/17/24 19:36 Review of Systems Review of Systems Yes all other systems are reviewed and are negative Constitutional: Denies fatigue, Denies fever(s) and Reports malaise Cardiovascular: Denies chest pain and Denies dyspnea Respiratory: Denies cough and Denies dyspnea Gastrointestinal: Reports abdominal pain, Reports GI cramping, Reports diarrhea, Reports nausea and Reports vomiting Endocrine: Denies fatigue PMFSH Past Medical History Attestation statement: The following information was validated with the patient. Medical History Asthma Social History Social History Alcohol intake: former Smoked in Last 30 Days: No Use of substances other than those prescribed or required for medical reasons: No Advance Directives: No Advance Directives Information Provided: Yes Physical Exam ED Vital Signs: Vital Signs - 24 hr 03/17/24 19:34 03/17/24 23:35 Temperature 98.6 F 98.6 F Pulse Rate 116 H 104 H Respiratory Rate 18 18 Blood Pressure 143/89 H 114/80 Pulse Oximetry 99 98 Oxygen Delivery Method Room Air Room Air BMI result Body Mass Index 17.2 Const Other: Alert well-appearing Orientation/consciousness: patient oriented x3 Resp Effort & Inspection: normal respiratory effort Cardio Other: Normal peripheral perfusion GI Other: Right abdomen is soft, nondistended nontender no guarding Skin Other: Warm dry no rash Neuro General: patient oriented x3, no focal motor deficits and CN's II-XI intact bilaterally Psych Other: Calm cooperative Medical Decision Making Medical Decision Making MDM Narrative: 34-year-old male presents with nausea vomiting diarrhea x1 day. Patient states he has had 7 loose bowel movements today with the associated nausea and indigestion. Generalized abdominal cramping. Denies fever, or concurrent cough cold symptoms. He does not have any sick contacts with similar symptoms to his knowledge. Denies recent travel, use the antibiotics or hospitalization. No chronic issues History: Per patient I have considered the following differential diagnoses: Viral gastroenteritis, traveler's diarrhea, C diff, diverticulitis Plan: This is likely viral gastroenteritis given such illness has been prevalent within the community. His abdominal exam was benign, he does not warrant imaging, he has no focal left lower quadrant pain on exam to suggest diverticulitis. He has no risk factors for C diff for traveler's diarrhea. We will provide symptomatic care. Screening labs completed from triage. I have independently reviewed the following tests: Labs: No leukocytosis, not anemic, no electrolyte abnormality Lab Data 03/17/24 23:38 03/17/24 23:39 Labs: Lab Results 03/17/24 03/17/24 Range/Units 23:38 23:39 WBC 6.5 (4.8-10.8) X10*3/uL RBC 5.29 (4.60-5.80) X10*6/uL Hgb 15.4 (14.0-18.0) g/dl Hct 45.7 (42.0-52.0) % MCV 86.4 (80.0-98.0) fL MCH 29.1 (27.0-33.0) pg MCHC 33.7 (31.0-36.0) g/dl RDW 12.6 (11.0-16.0) % Plt Count 243 (160-400) X10*3/uL MPV 9.3 L (9.4-12.4) fL Absolute Nucleated RBC 0.000 (0.0-0.012) X10*3/uL Nucleated RBC % (auto) 0.0 (0.0-0.2) /100WBC Sodium 140 (135-145) mmol/L Potassium 3.8 (3.3-5.1) mmol/L Chloride 108 (96-108) mmol/L Carbon Dioxide 26 (22-29) mmol/L Anion Gap 10 L (12-20) BUN 19 H (9-16) mg/dL Creatinine 0.83 (0.5-1.4) mg/dL Estim Creat Clear Calc 100.2 Estimated GFR > 60 Random Glucose 101 (60-115) mg/dL Calcium 9.0 (8.4-10.2) mg/dL Total Bilirubin 1.5 H (0.0-1.0) mg/dL AST 23 (5-37) U/L ALT 28 (0-40) U/L Alkaline Phosphatase 58 (39-117) U/L Total Protein 8.2 H (6.5-8.0) g/dL Albumin 4.7 (3.5-5.0) g/dL Medications Administered Generic Name Dose Route Start Last Admin Trade Name Freq PRN Reason Stop Dose Admin Sodium Chloride 1,000 mls @ 999 mls/hr 03/18/24 02:15 03/18/24 02:17 Ns IV 03/18/24 03:15 999 mls/hr .Q1H1M JENNIFER Administration Discontinued Medications Generic Name Dose Route Start Last Admin Trade Name Freq PRN Reason Stop Dose Admin Dicyclomine HCl 20 mg 03/18/24 02:03 03/18/24 02:16 Dicyclomine Hcl 10 Mg Capsule PO 03/18/24 02:04 20 mg ONCE ONE Administration Ondansetron HCl 4 mg 03/18/24 02:03 03/18/24 02:16 Ondansetron Hcl 4 Mg/2 Ml Vial IVPUSH 03/18/24 02:04 4 mg ONCE ONE Administration Discharge Plan Discharge Clinical Impression: Gastroenteritis Patient Disposition: Home, Self-Care Instructions: Gastroenteritis (ED) Additional Instructions: You are being treated for viral gastroenteritis, such illness has been prevalent within the community. To know all of your labs were normal. See home care instructions. Uses Zofran as needed for nausea, use the dicyclomine as needed for abdominal cramping and diarrhea. Use the Carafate, 30 minutes before meals, to help coat your stomach and alleviate your indigestion. Follow up with your primary care provider as needed. Prescriptions: New ondansetron HCl 4 mg tablet 4 mg PO Q8H PRN (Reason: nausea and vomiting) Qty: 10 0RF sucralfate [Carafate] 100 mg/mL suspension 10 ml PO QID PRN (Reason: reflux) Qty: 300 0RF Rx Instructions: swish in mouth and swallow; use after food/drink dicyclomine 20 mg tablet 20 mg PO BID PRN (Reason: abdominal pain) Qty: 7 0RF No Action cefuroxime axetil 250 mg tablet 250 mg PO BID 10 Days Qty: 20 0RF diphenhydramine HCl [Benadryl] 25 mg capsule 25 mg PO TID PRN (Reason: itching) Qty: 14 0RF cetirizine [Zyrtec] 10 mg tablet 10 mg PO DAILY Qty: 14 0RF Stand Alone Forms: Work/School Release Print Language: Setswana
[2024-03-18] MEDS: Sucralfate Oral Suspension 1 GM/10 ML ORAL.SUSP PO (03:17)
[2024-03-18 03:20] VITALS: BP 126/58; PULSE 88; RESP 16; TEMP 36.8; O2SAT 98
== END 2024-03-18 03:23 | disposition home or self-care (01) ==
PROVIDERS: Emergency Provider Emergency Medicine; PCP General Practice
DX: K52.9 Noninfective gastroenteritis and colitis, unspecified (principal); R11.0 Nausea; R10.2 Pelvic and perineal pain; Z79.899 Other long term (current) drug therapy
CPT/HCPCS: 36415; 80053; 85027; 96361; 96374; 99284; J2405

== ENCOUNTER 2024-09-08 08:53 | Outpatient (AMB) | payer MEDICAID, SELFPAY ==
--- NOTE | 2024-09-08 08:58 | A.OFFVIS_ITS ---
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 He was working at his brothers house when he injured himself. He is right hand dominant. He reports that he feels pressure and sensitivity up his left arm. Sap Ppm Consultant Required: No Allergies acetaminophen (From TYLENOL) Allergy (Unknown, Verified 09/08/24 09:00) DIZZINESS, FELT REALLY BAD ampicillin (AMPICILLIN) Allergy (Unknown, Verified 09/08/24 09:00) HIVES, FEELS LIKE ORGANS SWOLLEN, swelling, swelling aspirin (ASPIRIN) Allergy (Unknown, Verified 09/08/24 09:00) DIZZINESS, FELT REALLY BAD, swelling, swelling fluphenazine (FLUPHENAZINE) Allergy (Unknown, Verified 09/08/24 09:00) WORSENED ANXIETY, anxiety haloperidol (Haldol) Allergy (Unknown, Verified 09/08/24 09:00) tachycardia mirtazapine Allergy (Unknown, Verified 09/08/24 09:00) sleepiness sertraline (SERTRALINE) Allergy (Unknown, Verified 09/08/24 09:00) SLEEPY, sleepiness Fluphenazine HCl Allergy (Unknown, Uncoded 09/08/24 09:00) Unknown Medication List - Last Reconciled 09/08/24 by Sakina Jesus RN cefuroxime axetil 250 mg PO BID 10 days cetirizine (Zyrtec) 10 mg PO DAILY clonazepam (Klonopin) 0.5 mg PO DAILY cyclobenzaprine 5 mg PO BEDTIME cyproheptadine 4 mg PO BEDTIME dicyclomine 20 mg PO BID PRN diphenhydramine HCl (Benadryl) 25 mg PO TID PRN fluoxetine 40 mg PO DAILY fluticasone propionate 44 mcg/actuation 1 puff inhalation BID hydroxyzine HCl 25 mg PO TID PRN lamotrigine 100 mg PO DAILY lidocaine 5% (Lidoderm) 1 patch topical DAILY ondansetron HCl 4 mg PO Q8H PRN sucralfate (Carafate) 10 mL PO QID PRN zolpidem 10 mg PO BEDTIME PRN PFSH Medical History Asthma Social History Alcohol intake: former Assessment & Plan Assessment & Plan (1) Laceration of left index finger: Code(s): S61.211A - Laceration without foreign body of left index finger without damage to nail, initial encounter Category: Medical Plan History of Present Illness The patient is a 34-year-old male presenting with a laceration of the left index finger. The injury occurred on the fifth of the month when the patient accident ally cut his finger with a [place]in[place]. The patient reports that the wound sometimes reopens and bleeds during daily activities, even when covered. The patient experiences decreased sensation on one side of the finger, suggesting a possible nerve injury. The patient is not currently taking any antibiotics but has been advised to start a course of Cephalexin due to the size and nature of the wound. The patient is allergic to penicillin but has no known allergies to sulfa drugs. Review of Systems - Neurological: Reports decreased sensation distal to the laceration - Integumentary: Reports wound reopening and bleeding during daily activities, has not done Systems reviewed and are negative except as per HPI and below Physical Exam - Neurological: Decreased sensation noted of the flap distal to the laceration, intact sensation on the other side - Wound assessment: No signs of infection, wound healing well Results Procedure Plan The patient will be started on a course of Cephalexin, to be taken four times daily, to prevent infection due to the size and nature of the wound, namely that the wound resulted from an injury with dirty hedge clippers. The patient is advised to keep the wound covered when outside but can leave it open to air with a thin layer of antibiotic ointment when at home. The patient should avoid submerging the wound in water and is instructed to return in one week for a wound check. Patient was informed and verbally consented to the use of an ambient scribe for clinic note documentation during this visit. Discussion Notes I discussed with the patient the possibility of a nerve injury due to the laceration, which may result in permanent loss of sensation in a small area of the finger. We reviewed the importance of starting antibiotics to prevent infection and the need for a follow-up visit in one week to assess wound healing. Patient Instructions - Take Cephalexin four times daily as prescribed. - Keep the wound covered when outside, but allow it to air with a thin layer of antibiotic ointment when at home. - Avoid submerging the wound in water. - Return in one week for a wound check. Medications: New cephalexin 500 mg PO Q6H 28 caps 0RF 7 days Coding Level of Care Code New Pt Level 3 (34684) Diagnoses Laceration of left index finger S61.211A
--- OUTSIDE RECORDS SUMMARY | 2024-09-08 09:06 | XMS_ITS | Encounter Summary ---
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 Name Role Phone Jennifer Arreguin MD Primary Care Provider [phone] Encounter Details Date Type Department Care Team (Latest Contact Info) Description 09/07/2024 Travel Social History Tobacco Use Types Packs/Day Years Used Date Smoking Tobacco: Never Smokeless Tobacco: Never Alcohol Use Standard Drinks/Week Comments Never 0 (1 standard drink = 0.6 oz pur e alcohol) Depression Answer Date Recorded Patient Health Questionnaire-9 Score 0 06/30/2023 Patient Health Questionnaire-9 Score 0 06/30/2023 Last PHQ-9: Questionnaire Data Not on file 0 06/30/2023 Housing Stability Answer Date Recorded What is your housing situation today? I have jackiejabari jenkins 06/20/[address] you li ve. Do you have problems with any of the following? Pests such as bugs, ants, or mice 06/20/2023 Food Insecurity Answer Date Recorded Within the past 12 months, y ou worried that your food would run out before you got money to buy more: Never True 12/20/2022 Within the past 12 months,th e food you bought just didn't last and you didn't have enough money to get more: Never True Transportation Answer Date Recorded In the past 12 months, has l ack of transportation kept you from medical appts, meetings, work or from getting things needed for daily living? No 06/20/2023 Utilities Answer Date Recorded In the past 12 months, has t he electric, gas, oil or water company threatened to shut off services in your home? No 12/20/2022 Depression Answer Date Recorded Patient Health Questionnaire-2 Score 0 06/30/2023 Sex and Gender Information Value Date Recorded Sex Assigned at Male 12/31/2021 10:26 AM EDT Legal Sex Male 10:26 AM EDT Gender Identity Male 12/31/2021 10:26 AM EDT Sexual Orientation Straight 12/31/2021 10 :26 AM EDT documented as of this encounter Plan of Treatment Upcoming Encounters Date Type Department Care Team (Late st Contact Info) Description 10/22/2024 3:45 PM EDT Office Visit [facility] [address] [place] [address] Jennifer Arreguin MD [address] [place] [address] documented as of this encounter Visit Diagnoses Not on filedocumented in this encounter Additional Health Concerns Assessment Noted Time PHQ-9 Depression Total Score: 0 06/30/19 24 3:21 PM EDT documented as of this encounter Care Teams Microwave Oven Assembler Relationship Specialty Start Date End Date Jennifer Arreguin MD [address] [place] [address] PCP - General Family Medicine 01/17/20 documented as of this encounter
== END 2024-09-08 09:31 | disposition home or self-care (01) ==
LOC: HO.HOS 08:53
PROVIDERS: PCP General Practice
DX: S61.211A Laceration without foreign body of left index finger without damage to nail, initial encounter (principal)
CPT/HCPCS: 99203

== ENCOUNTER → 2024-09-08 08:53 | Outpatient (BNVA) | payer MEDICAID, SELFPAY | PROVIDERS: PCP General Practice | DX: S61.211A Laceration without foreign body of left index finger without damage to nail, initial encounter (principal) | CPT/HCPCS: 99212 ==

== ENCOUNTER 2024-09-16 09:17 | Outpatient (AMB) | payer MEDICAID, SELFPAY ==
--- OUTSIDE RECORDS SUMMARY | 2024-09-16 09:33 | XMS_ITS | Clinical Summary ---
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 3 Active FLUoxetine (PROzac) 40 MG capsule TAKE 2 TABLETS BY MOUTH EVERY DAY FOR MOOD / FOR ANXIETY 3 Active hydrOXYzine HCl (Atarax) 25 MG tablet Take 25 mg by mouth 3 times daily. 3 Active zolpidem (Ambien) 10 MG tablet TAKE 1 TABLET BY MOUTH AT BEDTIME NEEDED 2 Active fluticasone (Flovent) 44 MCG/ACT inhalerIndication s:Mild persistent asthma without complication Inhale 2 puffs in the morning and at bedtime. Rinse mouth with water after use to reduce aftertaste and incidence of candidiasis. Do not swallow. 10.6 g 5 3 Active lamoTRIgine (LaMICtal) 100 MG tablet Take 1 tablet by mouth at bed time. 1 Active Omeprazole 20 MG tablet delayed-release Take 20 mg by mouth in the morning. 90 tablet 3 3 Active lidocaine (Lidoderm) 5 % patch Apply 1 patch topically in the morning. Remove & discard patch within 12 hours or as directed by MD. 30 patch 3 3 Active cyclobenzaprine (Flexeril) 5 MG tabletIndications :Chronic bilateral thoracic back pain TAKE 1 TABLET BY MOUTH AT BEDTIME FOR 10 DAYS. 30 tablet 1 3 Active Sod Fluoride-Pot[place] m Nitrate 1.1-5 % pasteIndications: Dental caries [place] teeth for 2 minutes, morning and night. Spit, do not rinse. Do not eat or drink anything for 30 minutes following brushing. 112 g 3 3 Active Sodium Fluoride 5000 Sensitive 1.1-5 % gel USE TO BRUSH TEETH FOR 2 MINUTES TWICE DAILY IN THE MORNING AND IN THE EVENING. SPIT OUT, DO NOT RINSE / EAT / DRINK FOR 30 MINUTES AFTER BRUSHING. 3 Active cetirizine (ZyrTEC) 10 MG tablet TAKE 1 TABLET BY MOUTH EVERY DAY FOR ALLERGIES 90 tablet 3 3 Active Diclofenac Sodium 1 % gelIndications:Le ft wrist pain Apply thin layer by topical route (quantity as directed on package insert) to affected area of pain 3 times daily as needed. 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 Assessment & Plan (07/02/2023 11:30 AM EDT): Hypermobility of fingers, knees, painful after he sits in those positions for some time Will refer to rheum for assistance with diagnosis and treatment recommendations Stomatitis 12/25/2022 Assessment & Plan (12/25/2022 4:42 PM EDT): -good oral hygiene measures reviewed -advised to use soft toothbrush -rx for oral chlorhexidine rinse sent to the pharmacy -monitor for triggers Hair loss 12/25/2022 Assessment & Plan (12/25/2022 4:45 PM EDT): -rx for topical minoxidil sent to the pharmacy -avoid stress/tension to the area -gentle massage daily -will refer to dermatology as requested Costochondritis 06/25/2022 Assessment & Plan (06/25/2022 10:30 AM EDT): Naproxen daily x 10 days Also along with PPI for stomach protection because he gets heartburn with NSAIDs Chronic bilateral thoracic back pain 03/25/2022 Overview (03/25/2022): scolisosis series muscel relxer eductated abotu red flag symptoms recommend PT next Assessment & Plan (06/25/2022 10:31 AM EDT): He would like to continue working out Will see if can assist with [employer] membership Lidocaine patches ordered as well Anxiety 11/10/2017 Pro de la Tourette's syndrome 11/10/2017 Mild persistent asthma without complication 11/01 Assessment & Plan (06/25/2022 10:30 AM EDT): Continue ALEXIS prn, Qvar daily Seizure disorder 11/10/2017 Underweight 11/10/2017 Encounters Date Type Department Care Team Description 09/07/2024 2:00 PM EDT Office Visit [facility] [address] [place] [id number] Libia Allen MD Fingertip avulsion, initial encounter (Primary Dx) 09/07/2024 Travel 08/10/2024 Telephone [facility] [address] [place] [address] Jennifer Arreguin MD june recall from Last 3 Months Immunizations Immunization Administration Dates Next Due Influenza Injectable Quadriv alant Preservative Free IIV4 MDCK 03/05/2022 Influenza injectable quadriv alent IIV4 with preservative 11/27/2016,11/22/2015 Influenza injectable quadriv alent preservative free 12/23/2022,03/21/2021,02/09/2020,2017 Tdap 07/25/2021,02/19/2018 Social History Tobacco Use Types Packs/Day Years Used Date Smoking Tobacco: Never Smokeless Tobacco: Never Tobacco Cessation:Counseling Given: Not Answered Alcohol Use Standard Drinks/Week Comments Never 0 (1 standard drink = 0.6 oz pur e alcohol) Depression Answer Date Recorded Patient Health Questionnaire-9 Score 0 06/30/2023 Patient Health Questionnaire-9 Score 0 06/30/2023 Last PHQ-9: Questionnaire Data Not on file 0 06/30/2023 Housing Stability Answer Date Recorded What is your housing situation today? I have jackie jenkins 06/20/[address] you [...] Orientation Straight 12/31/2021 10 :26 AM EDT Last Filed Vital Signs Vital Sign Reading Time Taken Comments Blood Pressure 120/88 09/07/2024 2:06 PM EDT Pulse 68 09/07/2024 2:06 PM EDT Temperature 36.8 C (98.2 F) 09/07/2024 2:06 PM EDT Respiratory Rate 17 09/07/2024 2:06 PM EDT Oxygen Saturation 98% 06/30/2023 3:19 PM EDT Inhaled Oxygen Concentration - - Weight 56.2 kg (124 lb) 09/07/2024 2:06 PM EDT Height 180.3 cm (5' 11 ) 09/07/2024 2:06 PM EDT Body Mass Index 17.29 09/07/2024 2:06 PM EDT Plan of Treatment Upcoming Encounters Date Type Department Care Team (Late st Contact Info) Description 10/22/2024 3:45 PM EDT Office Visit [facility] [address] [place], [place] [id number] Jennifer Arreguin MD [address] [place] [address] Health Maintenance Due Date Last Done Comments Disability Screening 1991 Alcohol/Substance Use Screening 2003 Family Planning (PISQ) 2006 HPV Vaccines (1 - Male 3-dose series) 2006 Hepatitis B Vaccines (1 of 3 - 19+ 3-dose series) 2010 Pneumococcal Vaccine: Pediatrics (0 to 5 Years) and At-Risk Patients (6 to 49) Years (1 of 2 - PCV) 2010 Dental Oral Exam 03/10/2023 09/06/2022 Dental X-Ray: Bitewings 09/08/2023 09/06/2022, 07/09 COVID-19 Vaccine ( - season) 2023 01/24/2021, 01/03/2021 Dental Prophylaxis 11/16/2023 05/15/2023, 09/17/2022 SDOH Screening 06/19/2024 06/20/2023 Depression Screening 06/29/2024 06/30/2023, 06/30/19 24 Influenza Vaccine (#1) 2024 , 12/23/2022, 03/05/2022, Additional history exists Dental X-Ray: Full Mouth 09/07/2025 09/06/2022, 05/11/2022 Tobacco Screening 09/07/2025 09/07/2024 DTaP/Tdap/Td Vaccines (3 - Td or Tdap) 07/26/2031 07/25/2021, 02/19/2018 Zoster Vaccines (1 of 2) 2041 RSV Patients and Patients Aged 60 years or older (1 - 1-dose 75+ series) 2066 HIV Screening Completed 05/21/2021 Hepatitis C Screening Completed 05/21/2021 HIB Vaccines Aged Out No longer eligi ble based on patient's age to complete this topic Hepatitis A Vaccines Aged Out No long er eligible based on patient's age to complete this topic IPV Vaccines Aged Out No longer eligi ble based on patient's age to complete this topic Meningococcal B Vaccine Aged Out No l onger eligible based on patient's age to complete this topic Meningococcal Vaccine Aged Out No vu rudy eligible based on patient's age to complete this topic RSV under 20 months Aged Out No longe r eligible based on patient's age to complete this topic Rotavirus Vaccines Aged Out No longer eligible based on patient's age to complete this topic Procedures Procedure Name Priority Date/Time Associated Diagnosis Comments PROPHYLAXIS - ADULT Routine 05/15/2023 1 :00 PM EDT Dental plaque Dental calculus INTRAORAL - COMPLETE SERIES OF RADIOGRAPHIC IMAGES Routine 09/06/2022 8:00 AM EDT Dental caries COMPREHENSIVE ORAL EVALUATION - NEW OR ESTABLISHED PATIENT Routine 09/06/2022 8:00 AM EDT Dental caries ZZZ HISTORICAL HEPATITIS C AB W/REFL TO HCV RNA, QN, PCR Routine 05/21/2021 12:00 AM EDT HIV 1/2 ANTIGEN/ANTIBODY, FOURTH GENERATION W/RFL Routine 05/21/2021 12:00 AM EDT from Last 3 Months or Most Recently Relevant to Health Maintenance Results * HEPATITIS C AB W/REFL TO HCV RNA, QN, PCR (05/21/2021 12:00 AM EDT) HEPATITIS C ANTIBODY NON-REACT DEIRDRE NON-REACT DEIRDRE [facility] INDEX 0.05 <1.00 [facility] Comment: HCV antibody was non-reactive. There is no laboratory evidence of HCV infection. In most cases, no further action is required. However, if recent HCV exposure is suspected, a test for HCV RNA (test code 92233) is suggested. For additional information please refer to http://education.[employer] okna/faq/HDW05s5 (This link is being provided for informational/ educational purposes only.) 05/21/2021 Jennifer Arreguin MD HISTORICAL/NON ORDERABLE LABS Final Result Performing Organization Address [facility] Co de Phone Number [facility] [address] * HIV 1/2 ANTIGEN/ANTIBODY,FOURTH GENERATION W/RFL (05/21/2021 12:00 AM EDT) HIV-1/2 ANTIGEN AND ANTIBODIES, 4TH GENERATION W/ REFLEX NON-REACT DEIRDRE NON-REACT DEIRDRE [facility] Comment: HIV-1 antigen and HIV-1/HIV-2 antibodies were not detected. There is no laboratory evidence of HIV infection. PLEASE NOTE: This information has been disclosed to you from records whose confidentiality may be protected by state law. If your state requires such protection, then the state law prohibits you from making any further disclosure of the information without the specific written consent of the person to whom it pertains, or as otherwise permitted by law. A general authorization for the release of medical or other information is NOT sufficient for this purpose. For additional information please refer to http://education.[employer] okna/faq/EJA408 (This link is being provided for informational/ educational purposes only.) The performance of this assay has not been clinically validated in patients less than 2 years old. 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
--- NOTE | 2024-09-16 09:36 | MHC.OFFVIS ---
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 States he is doing well however he has numbness at tip of his left index finger Allergies acetaminophen (From TYLENOL) Allergy (Unknown, Verified 09/16/24 09:44) DIZZINESS, FELT REALLY BAD ampicillin (AMPICILLIN) Allergy (Unknown, Verified 09/16/24 09:44) HIVES, FEELS LIKE ORGANS SWOLLEN, swelling, swelling aspirin (ASPIRIN) Allergy (Unknown, Verified 09/16/24 09:44) DIZZINESS, FELT REALLY BAD, swelling, swelling fluphenazine (FLUPHENAZINE) Allergy (Unknown, Verified 09/16/24 09:44) WORSENED ANXIETY, anxiety haloperidol (Haldol) Allergy (Unknown, Verified 09/16/24 09:44) tachycardia mirtazapine Allergy (Unknown, Verified 09/16/24 09:44) sleepiness sertraline (SERTRALINE) Allergy (Unknown, Verified 09/16/24 09:44) SLEEPY, sleepiness Fluphenazine HCl Allergy (Unknown, Uncoded 09/16/24 09:44) Unknown HPI HPI OV--LT index fingertip traumatic partial amp: Details: Serafin 34 yr old male presents today for his follow up visit for his left index fingertip traumatic partial amputation DOI September 04 while he was 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 Patient denies any pain, redness, swelling, drainage from the laceration site. 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 Neuro: Diminished sensation of the tip of the left index finger in the area of the laceration Normal sensation of the tips of all other digits of the left hand at this time Vascular: Cap refill brisk Pain: No tenderness to palpation about the distal aspect of the left index finger ROM: Range of motion of the left hand full and intact, the patient is able to make a closed fist and extend all digits of the left hand fully Skin: No lacerations or abrasions. General: No ecchymosis, erythema, or evidence of infection. Psych: Appears grossly normal Affect normal Attitude cooperative Assessment & Plan Assessment & Plan (1) Laceration of left index finger: Code(s): S61.211A - Laceration without foreign body of left index finger without damage to nail, initial encounter Category: Medical Plan 1. Laceration of the left index finger Patient has recovered well from his injury Patient is educated that in his likely that he will not get normal sensation back to the area, as he likely injured the superficial nerves when he lacerated his finger No antibiotics necessary No further active restrictions Follow-up as needed Coding Level of Care Code Est Pt Level 3 (66770) Diagnoses Laceration of left index finger S61.211A
[2024-09-16 09:44] VITALS: BMI 17.2
== END 2024-09-16 09:55 | disposition home or self-care (01) ==
LOC: HO.HOS 09:17
PROVIDERS: PCP General Practice
DX: S61.211A Laceration without foreign body of left index finger without damage to nail, initial encounter (principal)
CPT/HCPCS: 99213

== ENCOUNTER → 2024-09-16 09:17 | Outpatient (BNVA) | payer MEDICAID, SELFPAY | PROVIDERS: PCP General Practice | DX: S68.121D Partial traumatic metacarpophalangeal amputation of left index finger, subsequent encounter (principal) | CPT/HCPCS: 99212 ==